=== PATIENT | female | born 1975 | race Asian ===

== ENCOUNTER 2017-01-28 09:45 | Emergency (ER) | payer OTHER ==
[2017-01-28 09:50] VITALS: BP 138/88; PULSE 81; TEMP 99.1; BMI 34.9
[2017-01-28 10:09] LABS: PH,URINE 5.5 (4.5-8); URINE APPEARANCE Clear; URINE BILIRUBIN Negative (NEGATIVE); URINE BLOOD Negative (NEGATIVE); URINE GLUCOSE (UA) Negative (NEGATIVE); URINE KETONE Negative (NEGATIVE); URINE LEUK ESTERASE Negative (NEGATIVE); URINE NITRITE Negative (NEGATIVE); URINE PROTEIN Negative (NEGATIVE); URINE UROBILINOGEN 0.2 (0.2-1.0)
[2017-01-28 10:10] LABS: URINE COLOR YELLOW
[2017-01-28] MEDS ORDERED: diazePAM 5 MG TABLET PO ONE (10:15)
[2017-01-28] MEDS ORDERED: IBUPROFEN 200 MG TABLET PO ONE (10:16)
[2017-01-28] MEDS ORDERED: diazePAM 5 MG TABLET ONE (10:22)
--- NOTE | 2017-01-28 10:43 | PDOC ---
History of Present Illness - General Chief Complaint: Pain, Acute Stated Complaint: LOW BACK PAIN Time Seen by Provider: 01/28/17 09:46 History Source: Patient Exam Limitations: No Limitations - History of Present Illness Initial Comments: 01/28/17 10:35 41 F with h/o low back pain / injury intermittent every few months, here today c /o severe low back pain radiating down through buttock. no known injury, believes she strained it mopping and sleeping in a different bed. no new numbness or tingling. no bowel or bladder incontinence. no f/c no urinary complaints. pain severe. mild improvement with 400 mg motrin at home. no other complaints. has had imaging many years ago and was told she has disc disease in low back. Past History - Past Medical History Allergies/Adverse Reactions: Allergies Allergy/AdvReac Type Severity Reaction Status Date / Time No Known Allergies Allergy Verified 01/28/17 09:46 Home Medications: Ambulatory Orders No Home Medications 0 dose .ROUTE UTDICT 07/22/13 Diazepam [Valium] 5 mg PO Q8H PRN #10 tablet MDD 3 01/28/17 Ibuprofen [Motrin -] 600 mg PO TID #90 tablet 01/28/17 - Suicide/Smoking/Psychosocial Hx Smoking History: Current every day smoker Number of Cigarettes Smoked Daily: 5 Information on smoking cessation initiated: Yes 'Breaking Loose' booklet given: 01/28/17 Hx Alcohol Use: No Drug/Substance Use Hx: No Substance Use Type: None Review of Systems - Review of Systems Constitutional: No: Chills, Diaphoresis, Fever Respiratory: No: Cough, Orthopnea Cardiac (ROS): No: Chest Pain, Edema : No: Burning, Dysuria Musculoskeletal: Yes: Back Pain. No: Joint Pain Neurological: No: Numbness, Paresthesia, Weakness All Other Systems: Reviewed and Negative *Physical Exam - Vital Signs Last Vital Signs Temp Pulse Resp BP Pulse Ox 99.1 F 81 17 138/88 100 01/28/17 09:45 01/28/17 09:45 01/28/17 09:45 01/28/17 09:45 01/28/17 09:45 - Physical Exam General Appearance: Yes: Nourished, Appropriately Dressed Neck: positive: Trachea midline Respiratory/Chest: positive: Lungs Clear, Normal Breath Sounds. negative: Respiratory Distress Cardiovascular: positive: Regular Rhythm, Regular Rate, S1, S2. negative: Edema Gastrointestinal/Abdominal: positive: Normal Bowel Sounds, Flat, Soft. negative : Tender Musculoskeletal: positive: Normal Inspection, Other (bilat lower extremity strenth 5/5 hip flext / ext kne ext, DFPF. sensation intact bilaterally. ). negative: CVA Tenderness Extremity: positive: Normal Capillary Refill Integumentary: positive: Dry, Warm Neurologic: positive: rouge sifter II-XII NML intact, Fully Oriented, Alert, Normal Mood/ Affect ED Treatment Course - ADDITIONAL ORDERS Additional order review: Laboratory Results 01/28/17 01/28/17 09:46 09:46 Urine Color Yellow Urine Appearance Clear Urine pH 5.5 Ur Specific [place] <= 1.005 Urine Protein Negative Urine Glucose (UA) Negative Urine Ketones Negative Urine Blood Negative Urine Nitrite Negative Urine Bilirubin Negative Urine Urobilinogen 0.2 Ur Leukocyte Esterase Negative Urine HCG, Qual Negative - Medications Given in the ED: ED Medications Discontinued Medications Generic Name Dose Route Start Last Admin Trade Name Freq PRN Reason Stop Dose Admin Diazepam 5 mg 01/28/17 10:15 01/28/17 10:30 Valium - PO 01/28/17 10:16 5 mg ONCE ONE Administration Ibuprofen 200 mg 01/28/17 10:16 01/28/17 10:30 Advil - PO 01/28/17 10:17 200 mg ONCE ONE Administration Oxycodone/Acetaminophen 1 combo 01/28/17 10:15 01/28/17 10:30 Percocet 5/325 - PO 01/28/17 10:16 1 combo ONCE ONE Administration Medical Decision Making - Medical Decision Making 01/28/17 10:38 pt ambulating with out diffiuclty. pain improved will dc on valium and motrin. follow up outpt pt and pcp. *DC/Admit/Observation/Transfer Diagnosis at time of Disposition: Sciatica - Discharge Dispostion Condition at time of disposition: Stable - Prescriptions Prescriptions: Ibuprofen [Motrin -] 600 mg PO TID #90 tablet Diazepam [Valium] 5 mg PO Q8H PRN #10 tablet MDD 3 PRN Reason: Muscle Spasms - Patient Instructions Printed Discharge Instructions: Sciatica Additional Instructions: take motrin 600 mg every 8 hours as needed for pain. take with food. take valium 5 mg every 8 hours as needed for muscle spasm. do not drive after thismedication, or mix with alcohol as it can make you sleepy. return for any numbness , weakness or any concerns. no heavy lifting for one week. you will have pain for several days. follow up with your regular doctor should your symptoms persist for an outpatient physical therapy and a MRI as your doctor feels necessary.
== END 2017-01-28 10:49 | disposition home or self-care (01) ==
LOC: FER 09:45
DX: M54.30 Sciatica, unspecified side (principal); G89.29 Other chronic pain; F17.210 Nicotine dependence, cigarettes, uncomplicated
CPT/HCPCS: 81003; 84703; 99282-25

== ENCOUNTER 2020-10-02 16:23 | Emergency (ER) | payer OTHER ==
[2020-10-02 16:37] VITALS: BP 119/85; PULSE 98; TEMP 97.4; BMI 33.3
[2020-10-02] MEDS ORDERED: LIDOCAINE 5% TOPICAL PATCH TP ONE (16:54)
[2020-10-02] MEDS ORDERED: KETOROLAC TROMETHAMINE 60 MG/2 ML VIAL IM ONE (16:54)
[2020-10-02] MEDS ORDERED: KETOROLAC TROMETHAMINE 60 MG/2 ML VIAL ONE (16:55)
[2020-10-02] MEDS ORDERED: LIDOCAINE 5% TOPICAL PATCH ONE (16:55)
[2020-10-02] MEDS ORDERED: LIDOCAINE PATCH REMOVAL MC SCH (22:00)
== END 2020-10-02 17:13 | disposition home or self-care (01) ==
LOC: JERFT 16:23 → JER 16:23 → JERFT 17:13
DX: M54.41 Lumbago with sciatica, right side (principal); G89.29 Other chronic pain; M54.31 Sciatica, right side
CPT/HCPCS: 99283-25

== ENCOUNTER 2022-08-28 11:31 | Emergency (ER) | payer OTHER ==
[2022-08-28 11:42] VITALS: BP 125/78; PULSE 80; RESP 18; TEMP 98.5; BMI 24.1
== END 2022-08-28 12:33 | disposition home or self-care (01) ==
LOC: JERFT 11:31
DX: S09.90XA Unspecified injury of head, initial encounter (principal); W22.8XXA Striking against or struck by other objects, initial encounter; Y92.481 Parking lot as the place of occurrence of the external cause; Z00.00 Encounter for general adult medical examination without abnormal findings
CPT/HCPCS: 99282-25